=== PATIENT | male | born 1980 | race Two or more races ===

== ENCOUNTER 2018-02-13 11:24 | Emergency (ER) | payer BC ==
[~2018-02-13] VITALS: Ht 172.7 cm; Wt 71.2 kg
--- NOTE | 2018-02-13 11:47 | NUR ---
PT WAS EVALUATED BY DR CORNELL. PT WAS D/C TO HOME. CRUTCHES TRAINING WAS DONE. GAIT IS STABLE.
[2018-02-13 11:49] VITALS: BP 131/72
== END 2018-02-13 12:07 | disposition home or self-care (01) ==
LOC: ER 11:26
DX: S86.912A Strain of unspecified muscle(s) and tendon(s) at lower leg level, left leg, initial encounter (principal); X58.XXXA Exposure to other specified factors, initial encounter; Y93.67 Activity, basketball; Y92.89 Other specified places as the place of occurrence of the external cause; Y99.8 Other external cause status
CPT/HCPCS: 99281; A4663